=== PATIENT | male | born 1975 | race African-American/Black ===

== ENCOUNTER 2018-05-18 07:23 | Emergency (ER) | payer OTHER ==
[2018-05-18] MEDS ORDERED: IBUPROFEN 600 MG TAB PO ONE (08:23)
--- NOTE | 2018-05-18 08:25 | EDPHY ---
H & P Stated Complaint: INJ L SHOULDER YESTERDAY WHILE EXERCISING Time Seen by Provider: 05/18/18 08:15 HPI/ROS: CHIEF COMPLAINT: Left shoulder pain HISTORY OF PRESENT ILLNESS: 42-year-old male presents with left shoulder pain. Yesterday he was working out with a friend. He was holding a punching bag with both hands, when he developed acute onset of left shoulder pain. The pain is moderate and increases with left shoulder movement. No numbness or tingling. No prior shoulder injury. ROS: No numbness, weakness, excessive bleeding, syncopal episode, other injury. - Personal History Current Tetanus Diphtheria and Acellular Pertussis (TDAP): Yes - Medical/Surgical History Hx Asthma: No Hx Chronic Respiratory Disease: No Hx Diabetes: No Hx Cardiac Disease: No Hx Renal Disease: No Hx Cirrhosis: No Hx Alcoholism: No Hx HIV/AIDS: No Hx Splenectomy or Spleen Trauma: No Other PMH: DENIES - Social History Smoking Status: Never smoked Alcohol Use: Sober Drug Use: None - Physical Exam Exam: Alert and oriented, pleasant Extremities: Left shoulder-normal inspection, tenderness over the posterior aspect of the shoulder, just inferior to the scapular spine, limited range of motion to 90 degrees; no tenderness over the suprascapular area, deltoid or upper arm Skin: Intact Neuro: Motor and sensory intact Vascular: Capillary refill brisk distally Constitutional: Initial Vital Signs Temperature (C) 36.9 C 05/18/18 07:26 Heart Rate 61 05/18/18 07:26 Respiratory Rate 17 05/18/18 07:26 Blood Pressure 139/87 H 05/18/18 07:26 O2 Sat (%) 96 05/18/18 07:26 O2 Delivery Mode Room Air Allergies/Adverse Reactions: No Known Allergies Allergy (Unverified 04/10/15 10:47) Home Medications: Medication Instructions Recorded NK [No Known Home Meds] 04/10/15 Medical Decision Making - Diagnostics Imaging Results: X-ray independently reviewed by me reveals no acute fracture. ED Course/Re-evaluation: This patient presents with a shoulder strain. X-ray is negative. A sling was placed and ice given. Will follow up with Ortho if symptoms persist. Departure - Departure Disposition: Home, Routine, Self-Care Clinical Impression: Left shoulder strain Qualifiers: Encounter type: initial encounter Qualified Code(s): S46.912A - Strain of unspecified muscle, fascia and tendon at shoulder and upper arm level, left arm , initial encounter Condition: Good Instructions: Rotator Cuff Injury (ED) Additional Instructions: Ibuprofen 600 mg 3 times daily while the pain persists. Apply ice to area every 1-2 hours. Use sling for comfort. Referrals: Theo Holbrook MD [Medical Doctor] - As per Instructions (Call to make an appointment.)
[2018-05-18 08:41] VITALS: BP 138/76
== END 2018-05-18 08:41 | disposition home or self-care (01) ==
DX: S46.912A Strain of unspecified muscle, fascia and tendon at shoulder and upper arm level, left arm, initial encounter (principal); Y93.B9 Activity, other involving muscle strengthening exercises; Y92.9 Unspecified place or not applicable; Y99.8 Other external cause status